=== PATIENT | female | born 1960 | race Caucasian/White ===

== ENCOUNTER 2016-09-20 19:44 | Emergency (ER) | payer BC ==
[2016-09-20] MEDS ORDERED: PROMETHAZINE HCL 25 MG TABLET PO ONE (20:13)
[2016-09-20] MEDS ORDERED: ACETAMINOPHEN 325 MG TABLET PO ONE (20:14)
--- NOTE | 2016-09-20 20:16 | ER Document Report ---
ED Medical Screen (RME) - General Chief Complaint: Pain All Over Stated Complaint: LEFT SIDE PAIN Time Seen by Provider: 09/20/16 20:11 Mode of Arrival: Medic Information source: Patient Notes: 56-year-old female with one-week history of shortness of breath worse than her baseline and pain to the left chest radiating down left arm. Patient reports she took trains and boluses here from [place] 1 week ago symptoms began during and after that trip. She reports a history of breast cancer with surgical removal and removal of Lymph nodes prostate 4 years ago but did not require chemotherapy or radiation. She reports she had cardiac catheter sensation one year ago that showed clear coronaries. She reports she's had pain like this ever since her surgery and based on the clear catheter she's been told that the pain in her left chest is related to postsurgical changes and she's been followed by pain management in [place] where she lived up until last week. She is not established any follow with pain management locally states that she has not had any pain medicine since yesterday. Physical exam Cachectic appearing female alert mildly tachypnea with talking Skin warm and dry Chest clear to auscultation bilateral breath sounds equal Heart tachycardic regular Extremity is warm to plus pulses no Homans sign Doubt cardiac etiology given her report of negative Last year but she does have multiple risk factors for pulmonary embolism check CT chest TRAVEL OUTSIDE OF THE [place] IN LAST 30 DAYS: No - Related Data Allergies/Adverse Reactions: ibuprofen Allergy (Verified 09/20/16 20:02) Past Medical History Renal/ Medical History: Denies: Hx Peritoneal Dialysis Physical Exam - Vital signs Vitals: Temp Pulse Resp BP Pulse Ox 98.1 F 99 20 138/94 H 96 09/20/16 19:57 09/20/16 19:57 09/20/16 19:57 09/20/16 19:57 09/20/16 19:57 Course - Vital Signs Vital signs: Temp Pulse Resp BP Pulse Ox 98.1 F 99 20 138/94 H 96 09/20/16 19:57 09/20/16 19:57 09/20/16 19:57 09/20/16 19:57 09/20/16 19:57
[2016-09-20 20:39] LABS: ABSOLUTE BASOPHILS # (AUTO) 0.1 10^3/uL (0.0-0.2); ABSOLUTE LYMPHOCYTES (AUTO) 1.8 10^3/uL (0.5-4.7); ABSOLUTE MONOCYTES (AUTO) 0.5 10^3/uL (0.1-1.4); ABSOLUTE NEUT (AUTO) 8.3 10^3/uL (1.7-8.2); BASOPHILS % (AUTO) 0.6 % (0-2); HEMATOCRIT 52.3 % (36.0-47.0); HEMOGLOBIN 17.8 g/dL (12.0-15.5); HGB HCT DIFFERENCE 1.1; LYMPHOCYTES % (AUTO) 16.7 % (13-45); MEAN CORPUSCULAR HEMOGLOBIN 29.7 pg (27.0-33.4); MEAN CORPUSCULAR HGB CONC 34.1 g/dL (32.0-36.0); MEAN CORPUSCULAR VOLUME 87 fl (80-97); MONOCYTES % (AUTO) 4.3 % (3-13); RED CELL DISTRIBUTION WIDTH 12.9 % (11.5-14.0); SEGMENTED NEUTROPHILS % (AUTO) 78.4 % (42-78); WHITE BLOOD COUNT 10.6 10^3/uL (4.0-10.5)
[2016-09-20 20:55] LABS: ALANINE AMINOTRANSFERASE 26 U/L (9-52); ALBUMIN 5.1 g/dL (3.5-5.0); ALKALINE PHOSPHATASE 118 U/L (38-126); ANION GAP 15 (5-19); ASPARTATE AMINO TRANSFERASE 29 U/L (14-36); BILIRUBIN,DIRECT 0.5 mg/dL (0.0-0.4); BILIRUBIN,TOTAL 1.1 mg/dL (0.2-1.3); BLOOD UREA NITROGEN 16 mg/dL (7-20); CALCIUM 11.4 mg/dL (8.4-10.2); CARBON DIOXIDE 26 mmol/L (22-30); CHLORIDE 105 mmol/L (98-107); CREATINE KINASE 25 U/L (30-135); CREATININE RESULT 0.57 mg/dL (0.52-1.25); GLUCOSE 115 mg/dL (75-110); POTASSIUM 4.1 mmol/L (3.6-5.0); SODIUM 146.1 mmol/L (137-145); TOTAL PROTEIN 8.7 g/dL (6.3-8.2)
[2016-09-20 21:08] LABS: CREATINE KINASE MB 0.25 ng/mL (<4.55); TROPONIN I < 0.012 ng/mL
[2016-09-20] MEDS ORDERED: OXYCODONE-ACETAMINOPHEN 5-325 MG TABLET PO ONE (22:47)
--- NOTE | 2016-09-20 22:52 | ER Document Report ---
ED General - General Chief Complaint: Pain All Over Stated Complaint: LEFT SIDE PAIN Time Seen by Provider: 09/20/16 20:11 Mode of Arrival: Medic Information source: Patient Notes: This is a 56-year-old female with a history of chronic pain and history of breast cancer in 2011 and presents with worsening pain to the left side of body. She reports that she recently moved here from [place] and has been here about a week. She states that she ran out of her chronic pain medications 2 days ago. She tried to get her medication refilled but was told that since the prescription was from out of state she would have to see another doctor in the state. [facility] but has not been able to get an appointment yet. She presented tonight complaining of pain to the left arm and left side of her chest. Her initial workup was started by the provider in triage. Currently she complains of pain all over. No shortness of breath, no cough, no fever. TRAVEL OUTSIDE OF THE [place] IN LAST 30 DAYS: No - Related Data Allergies/Adverse Reactions: ibuprofen Allergy (Verified 09/20/16 20:02) Past Medical History - General Information source: Patient - Social History Smoking Status: Current Every Day Smoker Chew tobacco use (# tins/day): No Frequency of alcohol use: None Drug Abuse: None Family History: Reviewed & Not Pertinent Patient has suicidal ideation: No Patient has homicidal ideation: No Pulmonary Medical History: Reports: Hx COPD Renal/ Medical History: Denies: Hx Peritoneal Dialysis Past Surgical History: Reports: Hx Mastectomy - L Review of Systems - Review of Systems Notes: REVIEW OF SYSTEMS: CONSTITUTIONAL : Denies fever, chills, or sweats. Denies recent illness. EENT: Denies eye, ear, throat, or mouth pain or symptoms. Denies nasal or sinus congestion. CARDIOVASCULAR: As per history of present illness RESPIRATORY: Denies cough, cold, or chest congestion. Denies shortness of breath, difficulty breathing, or wheezing. GASTROINTESTINAL: Denies abdominal pain. Denies nausea, vomiting, or diarrhea. Denies constipation. GENITOURINARY: Denies difficulty urinating, painful urination, burning, frequency, or blood in urine. MUSCULOSKELETAL: Chronic back pain SKIN: Denies rash or skin lesions. HEMATOLOGIC : Denies easy bruising or bleeding. LYMPHATIC: Denies swollen, enlarged glands. NEUROLOGICAL: Denies altered mental status or loss of consciousness. Denies headache. PSYCHIATRIC: Denies anxiety or stress or depression. ALL OTHER SYSTEMS REVIEWED AND NEGATIVE. Physical Exam - Vital signs Vitals: Temp Pulse Resp BP Pulse Ox 98.1 F 99 20 138/94 H 96 09/20/16 19:57 09/20/16 19:57 09/20/16 19:57 09/20/16 19:57 09/20/16 19:57 - Notes Notes: PHYSICAL EXAMINATION: GENERAL: Frail, thin female who appears older than her stated age. She is in no distress. She is pleasant and conversant. HEAD: Atraumatic, normocephalic. EYES: Pupils equal round and reactive to light, extraocular movements intact, sclera anicteric, conjunctiva are normal. ENT: nares patent, oropharynx clear without exudates. Moist mucous membranes. NECK: Normal range of motion, supple without lymphadenopathy LUNGS: Breath sounds clear to auscultation bilaterally and equal. No wheezes rales or rhonchi. HEART: Regular rate and rhythm without murmurs ABDOMEN: Soft, nontender, normoactive bowel sounds. No guarding, no rebound. No masses appreciated. EXTREMITIES: Normal range of motion, no edema NEUROLOGICAL: Cranial nerves grossly intact. Normal speech, no gross focal motor or sensory deficit appreciated. PSYCH: Normal mood, normal affect. SKIN: Warm, Dry, normal turgor, no rashes or lesions noted. Course - Re-evaluation Re-evalutation: 09/20/16 22:50 Patient has had a reassuring workup in the ER to include reassuring labs, and a negative CT angiogram of the chest. There is no evidence of PE. 09/20/16 22:53 Patient states that she has been in pain management on chronic narcotics for years, and she has been unable to fill her prescription in this state as she recently moved here. She does not have any filled narcotic prescriptions in the [place] database. She is attempting to find a pain physician in [place]. I will prescribe a very limited supply of pain medication tonight and had a long discussion with patient and family that the ER would not be providing further prescriptions for chronic pain. They voiced understanding and [facility] will [facility]. - Vital Signs Vital signs: Temp Pulse Resp BP Pulse Ox 98.1 F 86 16 145/78 H 100 09/20/16 19:57 09/20/16 23:53 09/20/16 23:53 09/20/16 23:53 09/20/16 23:53 - Laboratory Result Diagrams: 09/20/16 20:20 09/20/16 20:20 Laboratory results interpreted by me: 09/20/16 09/20/16 20:20 20:20 WBC 10.6 H RBC 6.00 H Hgb 17.8 H Hct 52.3 H Seg Neutrophils % 78.4 H Absolute Neutrophils 8.3 H Sodium 146.1 H Glucose 115 H Calcium 11.4 H Direct Bilirubin 0.5 H Creatine Kinase 25 L Total Protein 8.7 H Albumin 5.1 H Discharge - Discharge Clinical Impression: Chronic pain disorder Condition: Stable Disposition: HOME, SELF-CARE Additional Instructions: Chronic Pain Control Stress, inactivity, and depression make pain more severe regardless of the cause of the pain. Stress and poor physical condition can cause pain such as headaches and backache. Relaxation: Rest in a quiet place with your eyes closed for 20 minutes twice daily. Concentrate on a pleasant image, or simply "feel" your breathing. Clear your mind. Stress management: Deal with your "stressors." Either take action, or eliminate the stressor from your life. Don't let things hang over you. Accept those things you can't change. Nutrition: Eat small, balanced meals -- don't skip, don't overeat. Meals should be high-carbohydrate, low-sugar, low-fat. Exercise: Exercise helps painful conditions and eases stress. Get 30 minutes of moderate exercise, five days a week. Do an activity that does not flare your pain. Precautions: Pain which continues to disrupt daily activities, or which changes in nature, requires a medical evaluation. Pain Clinic referral is available. We do not manage chronic pain in the Emergency Department. We will try to appropriately help you through an acute flare of your chronic painful condition , but for on-going chronic pain that does not improve, you will need to see your private doctor or chest painting leader. We do not provide repeated medication management of chronic painful conditions. If you wish, we can provide the name of local pain management physicians. Prescriptions: Oxycodone HCl/Acetaminophen [Percocet 5-325 mg Tablet] 1 tab PO Q6H PRN #10 tablet PRN Reason:
--- NOTE | 2016-09-20 23:37 | EKG REPORT ---
SEVERITY:- ABNORMAL ECG - SINUS RHYTHM PROBABLE LEFT VENTRICULAR HYPERTROPHY BORDERLINE T ABNORMALITIES, INFERIOR LEADS : Confirmed by: Donato Kramer 20-Sep-2016 23:36:36
[2016-09-20 23:54] VITALS: BP 145/78
== END 2016-09-20 23:53 | disposition home or self-care (01) ==
LOC: ER 19:44
DX: G89.29 Other chronic pain (principal); M54.9 Dorsalgia, unspecified; R07.9 Chest pain, unspecified; M79.602 Pain in left arm; F17.200 Nicotine dependence, unspecified, uncomplicated; Z88.6 Allergy status to analgesic agent; J44.9 Chronic obstructive pulmonary disease, unspecified; Z85.3 Personal history of malignant neoplasm of breast
CPT/HCPCS: 36415; 71275; 80053; 82550; 82553; 83690; 83880; 84484; 85025; 93005; 93010; 99284

== ENCOUNTER 2016-09-28 21:38 | Emergency (ER) | payer BC ==
[2016-09-28] MEDS ORDERED: ASPIRIN 81 MG TABLET, CHEWABLE PO ONE (22:07)
[2016-09-28 22:30] LABS: HEMATOCRIT 41.2 % (36.0-47.0); HEMOGLOBIN 14.1 g/dL (12.0-15.5); RED BLOOD COUNT 4.76 10^6/uL (3.72-5.28); WHITE BLOOD COUNT 11.3 10^3/uL (4.0-10.5)
[2016-09-28 22:31] LABS: ABSOLUTE BASOPHILS # (AUTO) 0.1 10^3/uL (0.0-0.2); ABSOLUTE EOSINOPHILS # (AUTO) 0.2 10^3/uL (0.0-0.6); ABSOLUTE LYMPHOCYTES (AUTO) 3.8 10^3/uL (0.5-4.7); ABSOLUTE MONOCYTES (AUTO) 0.7 10^3/uL (0.1-1.4); ABSOLUTE NEUT (AUTO) 6.5 10^3/uL (1.7-8.2); BASOPHILS % (AUTO) 1.1 % (0-2); EOSINOPHILS % (AUTO) 1.4 % (0-6); HGB HCT DIFFERENCE 1.1; LYMPHOCYTES % (AUTO) 33.8 % (13-45); MEAN CORPUSCULAR HEMOGLOBIN 29.7 pg (27.0-33.4); MEAN CORPUSCULAR HGB CONC 34.2 g/dL (32.0-36.0); MEAN CORPUSCULAR VOLUME 87 fl (80-97); MONOCYTES % (AUTO) 6.3 % (3-13); RED CELL DISTRIBUTION WIDTH 12.9 % (11.5-14.0); SEGMENTED NEUTROPHILS % (AUTO) 57.4 % (42-78)
[2016-09-28 22:46] LABS: ALANINE AMINOTRANSFERASE 29 U/L (9-52); ALBUMIN 3.8 g/dL (3.5-5.0); ALKALINE PHOSPHATASE 91 U/L (38-126); ANION GAP 10 (5-19); ASPARTATE AMINO TRANSFERASE 21 U/L (14-36); BILIRUBIN,DIRECT 0.2 mg/dL (0.0-0.4); BILIRUBIN,TOTAL 0.3 mg/dL (0.2-1.3); BLOOD UREA NITROGEN 14 mg/dL (7-20); CALCIUM 9.9 mg/dL (8.4-10.2); CARBON DIOXIDE 25 mmol/L (22-30); CHLORIDE 107 mmol/L (98-107); CREATINE KINASE 22 U/L (30-135); CREATININE RESULT 0.63 mg/dL (0.52-1.25); GLUCOSE 111 mg/dL (75-110); POTASSIUM 3.6 mmol/L (3.6-5.0); SODIUM 141.8 mmol/L (137-145); TOTAL PROTEIN 6.1 g/dL (6.3-8.2)
[2016-09-28 22:58] LABS: CREATINE KINASE MB 0.43 ng/mL (<4.55); TROPONIN I 0.03 ng/mL
[2016-09-29] MEDS ORDERED: OXYCODONE-ACETAMINOPHEN 5-325 MG TABLET PO ONE (01:51)
--- NOTE | 2016-09-29 01:54 | ER Document Report ---
ED General - General Chief Complaint: Arm Pain Stated Complaint: LEFT ARM PAIN,ANXIETY Time Seen by Provider: 09/29/16 01:36 Notes: Patient is a 56-year-old female comes emergency department for chief complaint of pain in her left arm, left forearm, pain in the side of her chest on the left side, and pain in her left back area. Patient states that she was dragging around a suitcase for the past several days using her left arm and thinks this may be related. She also has chronic left-sided pain, she had a left lumpectomy and lymph node dissection years ago, reports she has fibromyalgia, reports she was on chronic pain management with morphine up until the last several weeks when she moved into the area. She states she is depending on the [place] to provide her medical care and a loner for a property purchase but this has not happened yet. She is here with her son. She denies history of NC, states she had a negative cardiac catheterization one year ago, states her father had an NC, she smokes. Denies history of diabetes, hypertension, hyperlipidemia. TRAVEL OUTSIDE OF THE U[place] IN LAST 30 DAYS: No - Related Data Allergies/Adverse Reactions: ibuprofen Allergy (Verified 09/20/16 20:02) Past Medical History - General Information source: Patient - Social History Smoking Status: Former Smoker Frequency of alcohol use: None Drug Abuse: None Lives with: Family Family History: Reviewed & Not Pertinent Patient has suicidal ideation: No Patient has homicidal ideation: No Pulmonary Medical History: Reports: Hx COPD Renal/ Medical History: Denies: Hx Peritoneal Dialysis Past Surgical History: Reports: Hx Mastectomy - L Review of Systems - Review of Systems Constitutional: No symptoms reported EENT: No symptoms reported Cardiovascular: See HPI Respiratory: No symptoms reported Gastrointestinal: No symptoms reported Genitourinary: No symptoms reported Female Genitourinary: No symptoms reported Musculoskeletal: See HPI Skin: No symptoms reported Hematologic/Lymphatic: No symptoms reported Neurological/Psychological: No symptoms reported Physical Exam - Vital signs Vitals: Temp Pulse Resp BP Pulse Ox 97.9 F 95 18 139/100 H 95 09/28/16 21:50 09/28/16 21:50 09/28/16 21:50 09/28/16 21:50 09/28/16 21:50 Interpretation: Normal - General General appearance: Other - Patient is somewhat thin and tired in appearance, does not appear to be in distress - HEENT Head: Normocephalic, Atraumatic Eyes: Normal Pupils: PERRL - Respiratory Respiratory status: No respiratory distress Chest status: Tender - There is mild generalized tenderness over the anterior chest wall worse on the left side than the right, no ecchymosis, erythema, or other abnormalities noted Breath sounds: Normal Chest palpation: Normal - Cardiovascular Rhythm: Regular. No: Tachycardia Heart sounds: Normal auscultation, S1 appreciated, S2 appreciated Murmur: No - Abdominal Inspection: Normal Distension: No distension Bowel sounds: Normal Tenderness: Nontender Organomegaly: No organomegaly - Back Back: Normal, Nontender - Extremities General upper extremity: Other - Left extremity swelling generally in both the arm and the forearm which is minimal compared to the right, no pitting edema, no erythema or discoloration of the arm, normal pulse, normal range of motion, normal distal sensation General lower extremity: Normal inspection, Nontender, Normal color, Normal ROM , Normal temperature, Normal weight bearing. No: Minerva's sign - Neurological Neuro grossly intact: Yes Cognition: Normal Orientation: AAOx4 Ninfa Coma Scale Eye Opening: Spontaneous Graham Coma Scale Verbal: Oriented Ninfa Coma Scale Motor: Obeys Commands Ninfa Coma Scale Total: 15 Speech: Normal Motor strength normal: LUE, RUE, LLE, RLE Sensory: Normal - Psychological Associated symptoms: Normal affect, Normal mood - Skin Skin Temperature: Warm Skin Moisture: Dry Skin Color: Normal Course - Re-evaluation Re-evalutation: There is very slight swelling of the left arm generally with no pitting edema, patient admits this is frequent and common since she had lymph node dissection and removal years ago. Normal distal neurovascular exam, no erythema or other abnormality suggesting infection or blood clot. EKG with no significant change from prior. Initial troponin indeterminate, this was cycled and second troponin is negative. Chest x-ray unremarkable. Lab workup unremarkable. Patient had a recent CTA of the chest which was negative. [facility], she reports she has been in contact with them multiple times, son confirms this, she states that they were told that on Sunday they should be receiving medical care and vouchers to complete their housing establishment and transition to the area. Patient states that she is doing her best to wean off of opiates, states that her chronic pain is particularly in her arm are keeping her from sleeping at night and she requests something to temporarily get her body. Patient did fill a prescription at this facility over a week ago and states she stretched them out as much as she could. She states she has not filled any other scripts from anywhere else since that time. She states she understands that she had a chronic pain condition and plans to have this taken care of by her provider as soon as possible. I did agree to give her a limited supply. Low suspicion of ACS based on her workup and chronic ongoing symptoms, patient will be discharged with return precautions, patient states satisfaction in agreement. - Vital Signs Vital signs: Temp Pulse Resp BP Pulse Ox 97.9 F 95 23 H 93/81 L 97 09/28/16 21:50 09/28/16 21:50 09/29/16 04:21 09/29/16 04:21 09/29/16 04:21 - Laboratory Result Diagrams: 09/28/16 22:10 09/28/16 22:10 Laboratory results interpreted by me: 09/28/16 09/28/16 22:10 22:10 WBC 11.3 H Glucose 111 H Creatine Kinase 22 L Total Protein 6.1 L Discharge - Discharge Clinical Impression: Left arm pain Condition: Stable Disposition: HOME, SELF-CARE Additional Instructions: Rest your arm. Your workup tonight shows no acute abnormalities. Follow up with your provider on Sunday as planned. Return to the emergency department for any concerning or worsening symptoms. Prescriptions: Oxycodone HCl/Acetaminophen [Percocet 5-325 mg Tablet] 1 - 2 tab PO Q4H PRN #12 tablet PRN Reason:
[2016-09-29] MEDS ORDERED: HYDROCODONE/ACETAMINOPHEN 5-325 MG 6 TAB/DSPK PO PRN (03:57)
[2016-09-29 07:06] VITALS: BP 93/81
--- NOTE | 2016-09-29 07:12 | EKG REPORT ---
SEVERITY:- ABNORMAL ECG - SINUS RHYTHM LEFT VENTRICULAR HYPERTROPHY : Confirmed by: Zoraida Bhatti MD 29-Sep-2016 07:11:44
== END 2016-09-29 07:10 | disposition home or self-care (01) ==
LOC: ER 21:38
DX: G89.29 Other chronic pain (principal); M79.632 Pain in left forearm; F41.9 Anxiety disorder, unspecified; M79.89 Other specified soft tissue disorders; R07.9 Chest pain, unspecified; M54.9 Dorsalgia, unspecified; M79.7 Fibromyalgia; J44.9 Chronic obstructive pulmonary disease, unspecified; Z82.49 Family history of ischemic heart disease and other diseases of the circulatory system; Z88.6 Allergy status to analgesic agent; Z98.890 Other specified postprocedural states
CPT/HCPCS: 36415; 71010; 80053; 82550; 82553; 84484; 85025; 93005; 93010; 99284

== ENCOUNTER 2016-10-10 15:34 | Emergency (ER) | payer BC ==
--- NOTE | 2016-10-10 17:32 | ER Document Report ---
ED General - General Chief Complaint: Breathing problem, Congestion, Out of Meds Stated Complaint: DIFFICULTY BREATHING Time Seen by Provider: 10/10/16 17:15 Mode of Arrival: Medic Information source: Patient Notes: Patient presents to emergency department with complaints of chronic left-sided chest wall pain left arm pain and nausea. Patient reports history of breast cancer 5 years ago. She reports she has had the pain since that time. She has been under the care of pain management, receiving morphine TID. Patient also reports history of fibromyalgia. Patient states she just moved from [place] a couple weeks ago and is waiting for a referral back to pain management from the [place]. TRAVEL OUTSIDE OF THE U[place] IN LAST 30 DAYS: No - HPI Onset: Other - chronic Onset/Duration: Persistent Severity: Moderate Pain Level: 3 - Related Data Allergies/Adverse Reactions: ibuprofen Allergy (Verified 09/20/16 20:02) Past Medical History - General Information source: Patient Last Menstrual Period: hyst - Social History Smoking Status: Current Every Day Smoker Cigarette use (# per day): Yes Frequency of alcohol use: None Drug Abuse: None Occupation: disabled Lives with: Family Family History: Reviewed & Not Pertinent Patient has suicidal ideation: No Patient has homicidal ideation: No Pulmonary Medical History: Reports: Hx COPD Renal/ Medical History: Denies: Hx Peritoneal Dialysis Malignancy Medical History: Reports: Hx Breast Cancer Past Surgical History: Reports: Hx Hysterectomy, Hx Mastectomy - L Review of Systems - Review of Systems Notes: Review HPI for review of systems., All other systems negative Physical Exam - Notes Notes: PHYSICAL EXAMINATION: GENERAL: Nontoxic looking, looks older than stated age HEAD: Atraumatic, normocephalic. EYES: extraocular movements intact, sclera anicteric, conjunctiva are normal. ENT: TM WNL, nares patent, oropharynx clear without exudates. Moist mucous membranes. NECK: Normal range of motion, supple without lymphadenopathy LUNGS: CTAB and equal. No wheezes rales or rhonchi. nontender to palpations HEART: Regular rate and rhythm without murmurs ABDOMEN: Soft, no tenderness. No guarding, no rebound BACK: No c/o pain EXTREMITIES: Normal range of motion, no pitting edema. No cyanosis. NEUROLOGICAL: Cranial nerves grossly intact. Normal sensory/motor exams. PSYCH: Normal mood, normal affect. SKIN: Warm, Dry, normal turgor, no rashes or lesions noted Course - Re-evaluation Re-evalutation: 10/10/16 17:38 Review of records notes CTA was negative for PE on September 20. Patient was instructed that we do not treat chronic pain but I would definitely evaluate her for her chest pain. Patient reports this is chronic pain. Patient became very upset and wanted to go out and have a cigarette. I instructed her that we are a non-smoking. Patient then started to leave the emergency department with her IV in. Discharge - Discharge Clinical Impression: chronic left side pain Condition: Stable Disposition: AGAINST MEDICAL ADVICE Instructions: Chronic Pain Control ([facility]), Nausea or Vomiting, Nonspecific ([facility]) , Chest Pain of Unclear Cause ([facility]) Additional Instructions: *You have been evaluated for chest pain, chronic pain, nausea *You have chosen to leave without labs. You may be having a heart attack *Please follow up with a primary care provider as soon as possible *Return to ED for worsening condition, changes, needs Forms: Smoking Cessation Education
--- NOTE | 2016-10-11 00:25 | EKG REPORT ---
SEVERITY:- ABNORMAL ECG - SINUS RHYTHM CONSIDER ANTEROSEPTAL INFARCT : Confirmed by: Donato Kramer 11-Oct-2016 00:25:14
== END 2016-10-10 17:50 | disposition left against medical advice (07) ==
LOC: ER 15:34
DX: R06.00 Dyspnea, unspecified (principal); R68.89 Other general symptoms and signs; F17.210 Nicotine dependence, cigarettes, uncomplicated; J44.9 Chronic obstructive pulmonary disease, unspecified; Z85.3 Personal history of malignant neoplasm of breast; Z88.6 Allergy status to analgesic agent; Z90.710 Acquired absence of both cervix and uterus; Z90.12 Acquired absence of left breast and nipple
CPT/HCPCS: 93005; 93010; 99285